=== PATIENT | male | born 1945 | race Caucasian/White ===

== ENCOUNTER 2021-04-04 07:01 | Day surgery (SDC) | payer MEDICARE ==
[~2021-04-04] VITALS: Ht 177.8 cm; Wt 92.4 kg
[2021-04-04] VITALS (14 sets, daily range): BP systolic 105–128; BP diastolic 67–85
[2021-04-04] MEDS ORDERED: normal saline 1,000 ML IV SCH (07:45)
[2021-04-04] MEDS ORDERED: LORazepam 0.5 MG tablet PO PRN (07:45)
[2021-04-04] MEDS ORDERED: diphenhydrAMINE 25mg capsule PO PRN (07:45)
[2021-04-04] MEDS ORDERED: CYAN250014 (07:59)
[2021-04-04] MEDS ORDERED: ESCI-8 PO (07:59)
[2021-04-04] MEDS ORDERED: IRBE150T24 PO (07:59)
[2021-04-04] MEDS ORDERED: RIVA20TA PO (07:59)
[2021-04-04] MEDS ORDERED: PRAZ1CAP5 PO (07:59)
[2021-04-04] MEDS ORDERED: PANT40TA54 PO (07:59)
[2021-04-04] MEDS ORDERED: BUSP10TA3 PO (07:59)
[2021-04-04] MEDS ORDERED: HYDR12.55 PO (07:59)
[2021-04-04] MEDS ORDERED: ATOR10TA70 PO (07:59)
[2021-04-04] MEDS ORDERED: ESCI10TA PO (07:59)
[2021-04-04] MEDS ORDERED: UBID50TA3 PO (07:59)
[2021-04-04 08:36] LABS: ALBUMIN 3.7 G/DL (3.4-5.0); ANION GAP 10 (8-16); BASOPHILS % (AUTO) 0.6 % (0-1); BLOOD UREA NITROGEN 20 MG/DL (7-18); BUN/CREATININE RATIO 16.9 (5.4-32.0); CALCIUM 8.6 MG/DL (8.5-10.1); CHLORIDE 110 MMOL/L (99-107); CREATININE 1.18 MG/DL (0.60-1.10); EOSINOPHILS # (AUTO) 0.2 X10'3 (0-0.9); EOSINOPHILS % (AUTO) 3.9 % (0-6); GLUCOSE 94 MG/DL (70-104); HEMATOCRIT 46.2 % (42.0-52.0); HEMOGLOBIN 15.6 g/dl (14.0-17.9); LYMPHOCYTES # (AUTO) 0.9 X10'3 (1.1-4.8); LYMPHOCYTES % (AUTO) 21.8 % (21-51); MEAN CORPUSCULAR HEMOGLOBIN 30.4 PG (27.0-31.0); MEAN CORPUSCULAR HGB CONC 33.8 g/dL (33.0-36.5); MONOCYTES # (AUTO) 0.4 X10'3 (0-0.9); MONOCYTES % (AUTO) 8.6 % (2-12); NEUTROPHILS # (AUTO) 2.7 X10'3 (1.8-7.7); NEUTROPHILS % (AUTO) 65.1 % (42-75); PLATELET COUNT 160 X10'3 (140-440); POTASSIUM 3.9 MMOL/L (3.5-5.1); RED BLOOD COUNT 5.13 X10'6 (4.70-6.10); RED CELL DISTRIBUTION WIDTH 13.9 % (11.5-14.5); SODIUM 147 MMOL/L (135-145); TOTAL CARBON DIOXIDE 27.1 MMOL/L (24-32); WHITE BLOOD COUNT 4.1 X10'3 (4.5-11.0); eGFR 61 ML/MIN
[2021-04-04 08:52] LABS: PARTIAL THROMBOPLASTIN TIME 29 SECONDS (22-32)
[2021-04-04] MEDS ORDERED: midazolam 1 mg/ML 2ml injection ONE (09:17)
[2021-04-04] MEDS ORDERED: LIDOcaine/PRILOcaine 5gm cream TP STA (09:17)
[2021-04-04] MEDS ORDERED: nitroGLYCERIN-Tridil 50MG/D5W 250 ML IV ONE (09:17)
[2021-04-04] MEDS ORDERED: verapamil 2.5 mg/ml inj IV ONE (09:17)
[2021-04-04] MEDS ORDERED: LIDOcaine 1% (10mg/ml)w/preservative injection 20ml MDV ONE (09:18)
[2021-04-04] MEDS ORDERED: heparin 1,000unit/ml 10ml vial 10 ML ONE (09:18)
[2021-04-04] MEDS ORDERED: iohexol 350 MG/ML 50ML vial IV ONE (09:18)
[2021-04-04] MEDS ORDERED: fentaNYL/PF 50MCG/1 ML 2ML syringe ONE (09:18)
[2021-04-04] MEDS ORDERED: iohexol 350MG/ML 100ml bottle IV ONE ×2 (09:18→10:23)
[2021-04-04] MEDS ORDERED: heparin 25,000 UNIT/250ml bag 250 ML IV ONE (10:23)
[2021-04-04] MEDS ORDERED: clopidogrel 300mg tablet ONE (10:49)
[2021-04-04 13:23] LABS: ISTAT Hct ART 44 %PCV (42-52); ISTAT O2 SATURATION ARTERIAL 97 % (95-98); ISTAT SOURCE ART
[2021-04-05] MEDS ORDERED: clopidogrel 75mg tablet PO SCH (08:00)
[2021-04-08 10:39] LABS: ISTAT Hct MIX 43 %PCV (42-52); ISTAT O2 SATURATION MIX VENOUS 83 % (60-80); ISTAT SOURCE BLNK
== END 2021-04-04 18:00 | disposition home or self-care (01) ==
LOC: SSTAY O 07:01
PROVIDERS: ATTEND Internal Medicine Cardiovascular Disease
DX: R94.39 Abnormal result of other cardiovascular function study (principal); I25.110 Atherosclerotic heart disease of native coronary artery with unstable angina pectoris; I10 Essential (primary) hypertension; E78.5 Hyperlipidemia, unspecified; G47.33 Obstructive sleep apnea (adult) (pediatric); Z86.718 Personal history of other venous thrombosis and embolism; Z86.711 Personal history of pulmonary embolism; Z85.528 Personal history of other malignant neoplasm of kidney; Z96.653 Presence of artificial knee joint, bilateral; Z98.890 Other specified postprocedural states; Z88.5 Allergy status to narcotic agent; Z90.49 Acquired absence of other specified parts of digestive tract; Z79.01 Long term (current) use of anticoagulants; Z79.899 Other long term (current) drug therapy; Z82.49 Family history of ischemic heart disease and other diseases of the circulatory system
CPT/HCPCS: 36415; 76937; 80048; 82803; 85014; 85025; 85347; 85610; 85730; 93005; 93460; 99152; 99153; C1725; C1751; C1769; C1874; C1894; C9600; J1644; J2001; J2250; J3010; Q0163; Q9967; A4620; A5120; A6258; J3490